=== PATIENT | female | born 1985 | race Caucasian/White ===

== ENCOUNTER 2018-02-11 01:07 | Emergency (ER) | payer OTHER ==
[2018-02-11 01:36] LABS: URINE BLOOD (Dip) POC 3+ (NEGATIVE); URINE GLUCOSE (Dip) POC Negative (NEGATIVE); URINE KETONES (Dip) POC Negative (NEGATIVE); URINE LEUKOCYTE EST (Dip) POC 2+ (NEGATIVE); URINE NITRITE (Dip) POC Negative (NEGATIVE); URINE TOTAL PROTEIN POC 2+ (NEGATIVE)
[2018-02-11] MEDS: CEFTRIAXONE 1 GM INJ IM (03:55)
[2018-02-11] MEDS: KETOROLAC 60 MG INJ IM (03:55)
== END 2018-02-11 04:19 | disposition home or self-care (01) ==
LOC: FTE 01:07
DX: N30.00 Acute cystitis without hematuria (principal)
CPT/HCPCS: 81003; 81025; 96372; 99284-25